=== PATIENT | female | born 1980 | race African-American/Black ===

== ENCOUNTER 2021-03-18 19:30 | Emergency (ER) | payer SELFPAY ==
[~2021-03-18] VITALS: Ht 162.6 cm; Wt 72.0 kg
[2021-03-18 19:37] VITALS: BP 137/92
[2021-03-18 20:43] LABS: EOSINOPHILS % 0.5 % (0.0-5.0); HEMATOCRIT. 29.9 % (36.0-48.0); HEMOGLOBIN. 9.5 g/dL (12.0-16.0); LYMPHOCYTES % 22.7 % (20.0-50.0); MEAN CORPUSCULAR HEMOGLOBIN 24.7 pg (28.0-32.0); MEAN CORPUSCULAR VOLUME 77.7 fL (81.0-99.0); MEAN PLATELET VOLUME 8.3 fl (7.4-10.4); MONOCYTES % 8.1 % (2.0-8.0); NEUTROPHILS % 67.7 % (40.0-76.0); PLATELET 365 x1000/uL (130-400); RED BLOOD CELL COUNT 3.85 mill/uL (4.2-5.4); RED CELL DISTRIBUTION WIDTH 17.4 % (11.6-14.6)
[2021-03-18 20:50] LABS: CHLORIDE 111 mEq/L (98-107)
[2021-03-18 20:51] LABS: HCG SCREEN NEGATIVE
== END 2021-03-19 02:20 | disposition home or self-care (01) ==
LOC: ER 19:30
DX: R53.1 Weakness (principal); D64.9 Anemia, unspecified; R42 Dizziness and giddiness
CPT/HCPCS: 36415; 80053; 84703; 85025; 93005; 99284